=== PATIENT | male | born 2000 | race African-American/Black ===

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

== ENCOUNTER 2024-08-11 13:06 | Emergency (ER) | payer MEDICAID ==
[~2024-08-11] VITALS: Ht 180.3 cm; Wt 132.7 kg
[2024-08-11 13:41] VITALS: BP 134/63; PULSE 92; RESP 18; TEMP 98.4; O2SAT 97
[2024-08-11 15:22] LABS: ALANINE AMINOTRANSFERASE 41 U/L (12-78); ALBUMIN/GLOBULIN RATIO 0.9 (1.1-1.5); ALKALINE PHOSPHATASE 79 IU/L (46-116); ANION GAP 7 (8-16); ASPARTATE AMINO TRANSFERASE 29 U/L (10-37); BILIRUBIN,TOTAL 0.4 MG/DL (0.1-1.0); BLOOD UREA NITROGEN 14 MG/DL (7-18); BUN/CREATININE RATIO 16.7 (10.0-20.0); CHLORIDE 104 MMOL/L (99-107); CREATININE 0.84 MG/DL (0.60-1.10); GLUCOSE 82 MG/DL (70-104); POTASSIUM 4.2 MMOL/L (3.5-5.1); SODIUM 141 MMOL/L (135-145); TOTAL CARBON DIOXIDE 29.7 MMOL/L (24-32); TOTAL PROTEIN 8.4 G/DL (6.4-8.2); eCRCL 147 ML/MIN; eGFR > 90 ML/MIN
[2024-08-11 15:42] LABS: BASOPHILS % (AUTO) 0.5 % (0-1); EOSINOPHILS # (AUTO) 0.3 X10'3 (0-0.9); EOSINOPHILS % (AUTO) 2.8 % (0-6); HEMATOCRIT 46.4 % (42.0-52.0); HEMOGLOBIN 15.7 g/dl (14.0-17.9); LYMPHOCYTES # (AUTO) 1.8 X10'3 (1.1-4.8); LYMPHOCYTES % (AUTO) 18.5 % (21-51); MEAN CORPUSCULAR HEMOGLOBIN 29.7 PG (27.0-31.0); MEAN CORPUSCULAR HGB CONC 33.9 g/dL (33.0-36.5); MEAN CORPUSCULAR VOLUME 87.6 FL (78-98); MEAN PLATELET VOLUME 8.2 FL (7.4-10.4); MONOCYTES # (AUTO) 0.7 X10'3 (0-0.9); MONOCYTES % (AUTO) 7.6 % (2-12); NEUTROPHILS % (AUTO) 70.6 % (42-75); PLATELET COUNT 353 X10'3 (140-440); RED CELL DISTRIBUTION WIDTH 14.4 % (11.5-14.5); WHITE BLOOD COUNT 9.9 X10'3 (4.5-11.0)
== END 2024-08-11 17:33 | disposition home or self-care (01) ==
LOC: ER 13:07
DX: R55 Syncope and collapse (principal); R53.1 Weakness; F41.9 Anxiety disorder, unspecified; F32.A Depression, unspecified; F12.90 Cannabis use, unspecified, uncomplicated
CPT/HCPCS: 36415; 71045; 80053; 85025; 93005; 99285

== ENCOUNTER 2024-11-01 15:05 | Emergency (ER) | payer MEDICAID ==
[~2024-11-01] VITALS: Ht 180.3 cm; Wt 125.0 kg
[2024-11-01 15:58] LABS: BASOPHILS % (AUTO) 0.6 % (0-1); EOSINOPHILS # (AUTO) 0.3 X10'3 (0-0.9); EOSINOPHILS % (AUTO) 4.3 % (0-6); HEMATOCRIT 39.7 % (42.0-52.0); HEMOGLOBIN 13.5 g/dl (14.0-17.9); LYMPHOCYTES % (AUTO) 15.7 % (21-51); MEAN CORPUSCULAR HEMOGLOBIN 29.1 PG (27.0-31.0); MEAN CORPUSCULAR VOLUME 85.4 FL (78-98); MEAN PLATELET VOLUME 7.5 FL (7.4-10.4); MONOCYTES % (AUTO) 16.5 % (2-12); NEUTROPHILS % (AUTO) 62.9 % (42-75); PLATELET COUNT 297 X10'3 (140-440); RED BLOOD COUNT 4.64 X10'6 (4.70-6.10); RED CELL DISTRIBUTION WIDTH 14.1 % (11.5-14.5); WHITE BLOOD COUNT 6.3 X10'3 (4.5-11.0)
[2024-11-01 16:06] LABS: ALBUMIN 3.4 G/DL (3.4-5.0); ANION GAP 7 (8-16); BLOOD UREA NITROGEN 6 MG/DL (7-18); BUN/CREATININE RATIO 6.8 (10.0-20.0); CHLORIDE 105 MMOL/L (99-107); CREATININE 0.88 MG/DL (0.60-1.10); ETHANOL < 10 MG/DL (<10); GLUCOSE 86 MG/DL (70-104); POTASSIUM 3.3 MMOL/L (3.5-5.1); SODIUM 138 MMOL/L (135-145); TOTAL CARBON DIOXIDE 26.4 MMOL/L (24-32); eCRCL 140 ML/MIN; eGFR > 90 ML/MIN
[2024-11-01 16:34] LABS: PLATELET ESTIMATE NORMAL; TOTAL CELLS COUNTED 100
[2024-11-01] MEDS: normal saline 1000ml 1,000 ML IV ONE (16:36)
[2024-11-01 18:25] VITALS: O2SAT 98
[2024-11-01 19:08] VITALS: BP 108/63; PULSE 68; RESP 16
== END 2024-11-01 19:17 | disposition home or self-care (01) ==
LOC: ER 15:06
DX: T40.601A Poisoning by unspecified narcotics, accidental (unintentional), initial encounter (principal); F17.200 Nicotine dependence, unspecified, uncomplicated; R07.89 Other chest pain; Y92.89 Other specified places as the place of occurrence of the external cause
CPT/HCPCS: 36415; 80048; 80320; 85007; 85025; 93005; 96360; 96361; 99284; J7030

== ENCOUNTER 2024-11-14 13:41 | Emergency (ER) | payer MEDICAID | END 2024-11-14 14:31 | disposition left against medical advice (07) | LOC: ER 13:42 | DX: T65.91XA Toxic effect of unspecified substance, accidental (unintentional), initial encounter (principal); Z53.21 Procedure and treatment not carried out due to patient leaving prior to being seen by health care provider; Y92.89 Other specified places as the place of occurrence of the external cause ==

== ENCOUNTER 2024-11-14 15:04 | Emergency (ER) | payer MEDICAID ==
[~2024-11-14] VITALS: Ht 180.3 cm; Wt 122.7 kg
[2024-11-14] MEDS: LORazepam 1 MG tablet PO ONE (19:58)
[2024-11-14 20:26] LABS: BASOPHILS # (AUTO) 0.1 X10'3 (0-0.2); EOSINOPHILS # (AUTO) 0.1 X10'3 (0-0.9); EOSINOPHILS % (AUTO) 1.5 % (0-6); HEMATOCRIT 45.3 % (42.0-52.0); HEMOGLOBIN 15.3 g/dl (14.0-17.9); LYMPHOCYTES # (AUTO) 1.7 X10'3 (1.1-4.8); LYMPHOCYTES % (AUTO) 20.4 % (21-51); MEAN CORPUSCULAR HEMOGLOBIN 28.8 PG (27.0-31.0); MEAN CORPUSCULAR HGB CONC 33.7 g/dL (33.0-36.5); MEAN CORPUSCULAR VOLUME 85.4 FL (78-98); MEAN PLATELET VOLUME 7.7 FL (7.4-10.4); MONOCYTES # (AUTO) 0.6 X10'3 (0-0.9); MONOCYTES % (AUTO) 6.9 % (2-12); NEUTROPHILS # (AUTO) 5.9 X10'3 (1.8-7.7); NEUTROPHILS % (AUTO) 70.2 % (42-75); PLATELET COUNT 405 X10'3 (140-440); RED CELL DISTRIBUTION WIDTH 14.2 % (11.5-14.5); WHITE BLOOD COUNT 8.4 X10'3 (4.5-11.0)
[2024-11-14 20:44] LABS: ALANINE AMINOTRANSFERASE 32 U/L (12-78); ALBUMIN 3.9 G/DL (3.4-5.0); ALKALINE PHOSPHATASE 83 IU/L (46-116); ANION GAP 7 (8-16); ASPARTATE AMINO TRANSFERASE 15 U/L (10-37); BILIRUBIN,TOTAL 0.6 MG/DL (0.1-1.0); BLOOD UREA NITROGEN 9 MG/DL (7-18); BUN/CREATININE RATIO 11.1 (10.0-20.0); CALCIUM 9.4 MG/DL (8.5-10.1); CHLORIDE 108 MMOL/L (99-107); CREATININE 0.81 MG/DL (0.60-1.10); ETHANOL < 10 MG/DL (<10); GLUCOSE 82 MG/DL (70-104); POTASSIUM 3.3 MMOL/L (3.5-5.1); SALICYLATE 2.9 MG/DL (4.0-20.0); SODIUM 144 MMOL/L (135-145); TOTAL CARBON DIOXIDE 28.8 MMOL/L (24-32); eCRCL 152 ML/MIN; eGFR > 90 ML/MIN
[2024-11-14 20:50] LABS: ACETAMINOPHEN < 2.0 UG/ML (10-30)
[2024-11-14] MEDS: normal saline 1000ml 1,000 ML IV ONE (20:51)
[2024-11-14 23:20] VITALS: BP 113/56; PULSE 88; RESP 14; TEMP 98.5; O2SAT 96
== END 2024-11-14 23:27 | disposition home or self-care (01) ==
LOC: ER 15:04
DX: T43.221A Poisoning by selective serotonin reuptake inhibitors, accidental (unintentional), initial encounter (principal); F41.9 Anxiety disorder, unspecified; F32.A Depression, unspecified; I49.9 Cardiac arrhythmia, unspecified; F12.90 Cannabis use, unspecified, uncomplicated; Z72.89 Other problems related to lifestyle; Y92.89 Other specified places as the place of occurrence of the external cause
CPT/HCPCS: 36415; 80053; 80178; 80320; 80329; 82948; 85025; 93005; 96360; 99284; J7030

== ENCOUNTER 2024-11-28 17:46 | Emergency (ER) | payer MEDICAID ==
[~2024-11-28] VITALS: Ht 180.3 cm; Wt 111.0 kg
[2024-11-28 18:06] VITALS: BP 133/61; PULSE 110; RESP 16; TEMP 97.9; O2SAT 98
== END 2024-11-28 20:09 | disposition home or self-care (01) ==
LOC: ER 17:46
DX: Z02.9 Encounter for administrative examinations, unspecified (principal); F10.20 Alcohol dependence, uncomplicated; F41.9 Anxiety disorder, unspecified; F32.A Depression, unspecified; F12.90 Cannabis use, unspecified, uncomplicated; Z72.89 Other problems related to lifestyle
CPT/HCPCS: 99281

== ENCOUNTER 2024-12-01 14:16 | Emergency (ER) | payer MEDICAID ==
[~2024-12-01] VITALS: Ht 180.3 cm; Wt 117.0 kg
[2024-12-01 14:28] VITALS: BP 137/51; PULSE 113; RESP 18; TEMP 97.9; O2SAT 98
== END 2024-12-01 16:24 | disposition home or self-care (01) ==
LOC: ER 14:17
DX: Z00.8 Encounter for other general examination (principal)
CPT/HCPCS: 99281

== ENCOUNTER 2025-01-26 21:31 | Emergency (ER) | payer MEDICAID ==
[~2025-01-26] VITALS: Ht 180.3 cm; Wt 166.9 kg
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
--- NOTE | 2025-01-26 23:24 | RADIOLOGY REPORT ---
Clinical History TRAUMA WITH TRISMUS Comparison None Technique: mandible 2 views Without Contrast DAISHA GROVE, [id number] findings: Mandible is intact. Mandibular condyles are normal in appearance. Midline septum No acute sinus disease Impression: 1. No displaced mandibular fracture. This report was electronically signed by Jean Pierre Nunes MD on 01/26/2025 11:21:47 PM.
[2025-01-26 23:48] VITALS: BP 130/72; PULSE 82; RESP 18; TEMP 98.6; O2SAT 99
== END 2025-01-26 23:50 | disposition home or self-care (01) ==
LOC: ER 21:31
DX: S01.01XD Laceration without foreign body of scalp, subsequent encounter (principal); S61.511D Laceration without foreign body of right wrist, subsequent encounter; R68.84 Jaw pain; F41.9 Anxiety disorder, unspecified; F32.9 Major depressive disorder, single episode, unspecified; F12.90 Cannabis use, unspecified, uncomplicated; X58.XXXD Exposure to other specified factors, subsequent encounter
CPT/HCPCS: 70110; 99283

== ENCOUNTER 2025-02-13 18:10 | Emergency (ER) | payer MEDICAID ==
[~2025-02-13] VITALS: Ht 180.3 cm; Wt 113.6 kg
[2025-02-13] MEDS: methylPREDNISolone sod succ 125mg/2ml vial IV ONE (18:20)
--- NOTE | 2025-02-13 18:28 | ELECTROCARDIOGRAPH REPORT ---
[facility] Test Date: 2025-02-13 Test Time: 18:25:44 Pat Name: DAISHA GROVE Department: EMERGENCY ROOM Patient ID: [facility]-[id number] Room: Gender: M Media Production Manager: KIERA : 2000 Requested By: NATALY JIMENEZ Order Number: [id number] Reading MD: Dr. Nataly Jimenez Measurements Intervals [place] Rate: 89 P: 61 [place]: 129 QRS: 80 QRSD: 83 T: 33 QT: 323 QTc: 393 Interpretive Statements Sinus rhythm Electronically Signed On 02-13-2025 21:01:[address] Nataly Jimenez Please click the below link to view image of tracing.
--- NOTE | 2025-02-13 18:31 | Physician Documentation ---
History of Present Illness ~ Chief Complaint: Cough Stated Complaint: SOB Time Seen by MD: 18:19 OK to notify your PCP?: Yes Primary Medical Doctor: JANESSA BEDOLLA Source: patient Mode of Arrival: POV Exam Limitations: no limitations HPI 24-year-old male who is here due to cough and shortness of breath which started five days ago. Patient states that he got out of the [facility] five days ago when the symptoms started. He states he has not done any drugs in 12 days now. He states he does smoke cigarettes. Pre arrival treatment with his inhaler provides temporary relief. No fever, chills, body aches, history of asthma, sinus pain, sore throat, or edema. Medication Reconciliation Allergies: Coded Allergies: No Known Allergies (Unverified , 12/01/24) Past Medical History Past Medical History: *CARDIOVASCULAR*, Anxiety, Depression Past Surgical History: noncontributory Alcohol Use: Occasionally Drug Use: marijuana Review of Systems All Other Systems at this time: Reviewed and Negative Physical Exam Vital Signs: Temperature: 99.0, Source: Oral, Heart Rate: 95, Respiratory Rate: 16, BP: 119/56, Pulse Oximetry: 96, Weight: 113.600 Oxygen Flow Rate: 0 Physical Exam GENERAL: Alert, no acute distress. HEENT: NCAT, EOMI, PERRL, normal oropharynx, moist oral mucosa. NECK: Supple, trachea midline. No cervical lymphadenopathy. CARDIAC: Regular rate and rhythm, no murmurs, rubs, or gallops. Equal distal pulses. No lower extremity edema, cap refill less than 2 seconds. RESPIRATORY: Scattered rhonchi with decreased breath sounds throughout lung perry, no coughing observed on exam but increased respiratory rate GASTROINTESTINAL: Non distended, soft, nontender, No guarding or rebound. MUSCULOSKELETAL: Normal range of motion, nontender, no swelling. Normal gait. NEUROLOGICAL: Awake, alert, and oriented x 3. SKIN: Warm/dry, no pallor, no rash. PSYCH: Alert and appropriate. Affect congruent with mood. Speech is clear. Good eye contact. Progress Progress Note CHEST RADIOGRAPH Indication: CP Technique: Single frontal view of the chest was obtained Comparison: DI CHEST,SINGLE VIEW on DOS: 08/11/24, CHEST,SINGLE VIEW on DOS: 05/18/20 FINDINGS: Lines and Tubes: None Lungs: No focal consolidation. Pleura: No effusion. No pneumothorax. Cardiomediastinal contours: Unremarkable Bones: No acute osseous abnormality. IMPRESSION: 1. No acute cardiopulmonary disease. Results/Orders Reviewed/noted all lab results: Yes Results/Orders Orders - FAVIOLA HUNT Svn Treatment (02/13/25 18:20) Completed Orders - FAVIOLA HUNT Ipratropium/Albuterol Nebule (Ipratrop/A (02/13/25 18:20) Methylprednisolone Sod Succ (Solumedrol (02/13/25 18:20) Methylprednisolone Sod Succ (Solumedrol (02/13/25 19:05) Medications Received in ER Medications (Trade) Dose Ordered Sig/Marion Route PRN Reason Start Time Stop Time Status Last Admin Dose Admin (ipratrop/ albuterol 0.5-3(2.5) MG/3ml nebule) 3 ml ONCE ONCE NEB 02/13/25 18:20 02/13/25 18:22 DC 02/13/25 18:41 3 ML (SoluMEDROL 125mg inj) 125 mg ONCE ONCE IM 02/13/25 19:05 02/13/25 19:16 DC 02/13/25 19:23 125 MG Vital Signs 02/13/25 02/13/25 02/13/25 18:11 18:42 18:47 Temp 99.0 Pulse 95 81 86 Resp 16 22 18 B/P (MAP) 119/56 Pulse Ox 96 99 O2 Delivery Room Air* Room Air* O2 Flow Rate 0 0 FiO2 N/A N/A Re-Evaluation Re-Evaluation : Re-Evaluation: Improved Progress improved post nebulizer treatment Medical Decision Making Differential Dx:Considerations: Include: Allergic rhinitis, Influenza, Otitis media, Peritonsillar abscess, Pharyngitis-Diphtheria, Pharyngitis-Streptoccal, Pharyngitis-Viral, Pneumonia, Pnuemonitis, Sinusitis, URI, Other Differential Diagnosis I did not swab him for COVID or influenza as he is outside of the treatment window he also afebrile. Departure Time of Disposition: 18:31 Disposition: 01 HOME / SELF CARE / HOMELESS Impression: Primary Impression: Asthma exacerbation Qualified Codes: J45.901 - Unspecified asthma with (acute) exacerbation Condition: Stable Discharge Instructions: Asthma, Adult, [id number] Additional Instructions: We gave you Solu-Medrol here which will last later than 24 hours. Considering your workup was unremarkable I treated you for an asthma exacerbation I do not believe you need a prescription for steroids but if your symptoms return, return to ER for re-evaluation Referrals: NO PRIMARY CARE PROVIDER (PCP) Education Educated: Patient Educated regarding: diagnosis, treatment, need for follow up Signature Scribe Signature: x Attestation: FAVIOLA Chavez February 13, 2025 18:31
--- NOTE | 2025-02-13 18:37 | RADIOLOGY REPORT ---
CHEST RADIOGRAPH Indication: CP Technique: Single frontal view of the chest was obtained Comparison: DI CHEST,SINGLE VIEW on DOS: 08/11/24, CHEST,SINGLE VIEW on DOS: 05/18/20 FINDINGS: Lines and Tubes: None Lungs: No focal consolidation. Pleura: No effusion. No pneumothorax. Cardiomediastinal contours: Unremarkable Bones: No acute osseous abnormality. IMPRESSION: 1. No acute cardiopulmonary disease.
[2025-02-13] MEDS: ipratropium/albuterol 3ml nebule NEB ONE (18:41)
[2025-02-13 18:42] VITALS: PULSE 81; RESP 22
[2025-02-13 18:47] VITALS: PULSE 86; RESP 18; O2SAT 99
[2025-02-13] MEDS: methylPREDNISolone sod succ 125mg/2ml vial IM ONE (19:23)
[2025-02-13 19:49] VITALS: BP 114/68; PULSE 89; RESP 16; TEMP 99; O2SAT 98
== END 2025-02-13 19:50 | disposition home or self-care (01) ==
LOC: ER 18:10
DX: J45.901 Unspecified asthma with (acute) exacerbation (principal); F17.210 Nicotine dependence, cigarettes, uncomplicated; F41.9 Anxiety disorder, unspecified; F32.A Depression, unspecified; F12.90 Cannabis use, unspecified, uncomplicated; Z72.89 Other problems related to lifestyle
CPT/HCPCS: 71045; 93005; 94640; 96372; 99283; J2919

== ENCOUNTER 2025-05-07 21:32 | Emergency (ER) | payer MEDICAID ==
[~2025-05-07] VITALS: Ht 180.3 cm; Wt 118.0 kg
[~2025-05-07 21:32] MED LIST: ALBU8HFA INH
[2025-05-07 21:42] VITALS: TEMP 98.6
--- NOTE | 2025-05-07 21:49 | Physician Documentation ---
History of Present Illness ~ Chief Complaint: Overdose Stated Complaint: OD Time Seen by MD: 21:39 Primary Medical Doctor: JANESSA GONZALES Patient presents to the emergency room for evaluation after overdose. Patient endorses smoking fentanyl this evening. He does state that he has overdosed previously. States that in his relaxing in his house smoking fentanyl and suddenly the next thing he remembers was he is waking up with a bunch of people around him. EMS reports that they arrived upon the scene he is receiving active CPR for a proximally 1 minute prior to Narcan administration. Medication Reconciliation Allergies: Coded Allergies: No Known Allergies (Unverified , 04/07/25) Scheduled PRN albuterol inhaler (Pro-Air Inhaler), 2 PUFFS INH Q4HPRN PRN for wheezing Past Medical History Past Medical History: *CARDIOVASCULAR*, Anxiety, Depression Past Surgical History: noncontributory Alcohol Use: Occasionally Drug Use: marijuana Review of Systems ROS All review of systems negative except as per HPI Physical Exam Vital Signs: Temperature: 98.6, Source: Oral, Heart Rate: 98, Respiratory Rate: 16, BP: 102/60, Pulse Oximetry: 99, Weight: 118.000 Physical Exam General: Patient is awake, alert, oriented x4 in no acute distress Head: Normocephalic and atraumatic. Eyes: Conjunctival normal. EOMI. PERRL. ENT: Mucous membranes moist. Neck: Supple, trachea is midline. Chest: Clear to auscultation bilaterally without rales, rhonchi, or wheezes. There is no accessory muscle use or retractions. Cardiac: RRR without murmurs, gallops, or rubs. Progress Results/Orders Results/Orders Vital Signs 05/07/25 05/07/25 05/07/25 21:42 21:46 23:00 Temp 98.6 Pulse 98 82 Resp 16 16 16 B/P (MAP) 102/60 97/55 (69) Pulse Ox 99 98 EKG/XRAY/CT/US/VASC/MRI EKG : Additional Comment EKG interpreted by myself shows time of 10/13/2033, rate 93, sinus rhythm, normal axis, no ST changes Medical Decision Making Findings Patient presents to the emergency room after admitted opioid overdose. He was monitored in the emergency room with no need for Narcan administration and is easily arousable and he had not believe he is in danger of overdose at this time. Patient has been advised to stop doing drugs. Departure Disposition: HOME / SELF CARE / HOMELESS Impression: Primary Impression: Poisoning by opiate or related narcotic Condition: Fair Discharge Instructions: Opioid Overdose Referrals: NO PRIMARY CARE PROVIDER (PCP) Prescriptions Naloxone HCl (Narcan) 4 Mg/Actuation [place] 1 SPRAYS BOTHNARES ONCE for 1 Day, #1 EA 0 Refills Prov: GERHARD SALDANA MD 05/07/25 Education Educated: Patient Educated regarding: need for follow up Signature Scribe Signature: No scribe Attestation: The note accurately reflects work and decisions made by me.Gerhard Saldana MD 05/07/25 23:33 GERHARD SALDANA MD May 07, 2025 21:48
[2025-05-07] MEDS ORDERED: NALO4SPR BOTHNARES (23:33)
[2025-05-07 23:55] VITALS: BP 101/61; PULSE 98; RESP 22; O2SAT 99
--- NOTE | 2025-05-08 10:21 | ELECTROCARDIOGRAPH REPORT ---
[facility] Test Date: 2025-05-07 Test Time: 21:34:59 Pat Name: DAISHA GROVE Department: EMERGENCY ROOM Room: Gender: M Assistant Superintendent: LARISA : 2000 Requested By: DEPARTMENT EMERGENCY Order Number: [id number] Reading MD: Dr. Kapil Mcgill Measurements Intervals [place] Rate: 93 P: 32 [place]: 131 QRS: 73 QRSD: 93 T: 25 QT: 338 QTc: 421 Interpretive Statements Sinus rhythm Electronically Signed On 05-08-2025 17:26:[address] Kapil Mcgill Please click the below link to view image of tracing.
== END 2025-05-07 23:57 | disposition home or self-care (01) ==
LOC: ER 21:32
DX: T40.411A Poisoning by fentanyl or fentanyl analogs, accidental (unintentional), initial encounter (principal); R40.4 Transient alteration of awareness; F12.90 Cannabis use, unspecified, uncomplicated; F41.9 Anxiety disorder, unspecified; F32.A Depression, unspecified; Z72.89 Other problems related to lifestyle; Y92.89 Other specified places as the place of occurrence of the external cause
CPT/HCPCS: 93005; 99283

== ENCOUNTER 2025-05-10 19:46 | Emergency (ER) | payer MEDICAID ==
[~2025-05-10] VITALS: Ht 180.3 cm; Wt 113.0 kg
[~2025-05-10 19:46] MED LIST changes: +NALO4SPR BOTHNARES
--- NOTE | 2025-05-10 20:39 | Physician Documentation ---
History of Present Illness ~ Chief Complaint: Overdose Stated Complaint: CHEST WALL PAIN Time Seen by MD: 19:52 Primary Medical Doctor: JANESSA BEDOLLA Mode of Arrival: EMS, Stretcher HPI 24 year old male with overdose of opioid, BIB ems after received bystander CPR and narcan by EMS. On arrival he is awake/alert, complaining of R-sternal chest pain, and denying other medical problems. Medication Reconciliation Allergies: Coded Allergies: No Known Allergies (Unverified , 04/07/25) Scheduled Naloxone HCl (Narcan), 1 SPRAYS BOTHNARES ONCE Scheduled PRN albuterol inhaler (Pro-Air Inhaler), 2 PUFFS INH Q4HPRN PRN for wheezing Past Medical History Past Medical History: *CARDIOVASCULAR*, Anxiety, Depression Past Surgical History: noncontributory Alcohol Use: Occasionally Drug Use: marijuana Review of Systems All Other Systems at this time: Reviewed and Negative Physical Exam Vital Signs: RN Vital Signs have been reviewed: Yes, Temperature: 95.0, Source: Oral, Heart Rate: 90, Respiratory Rate: 13, BP: 124/59, Pulse Oximetry: 100, Weight: 113.000 Physical Exam HEENT: PERRL, moist oral mucosa, EOMI Pulmonary: No respiratory distress CTAB Cardiac: RRR, no murmur, rub or gallop; chest wall +TTP R inferior sternum MSK: no deformity Skin: w/d/i, no rash Neuro: alert, nonfocal Psych: normal affect Progress Results/Orders Results/Orders Orders - JOSHUA ZUÑIGA MD Chest,Single View (05/10/25 20:08) Completed Orders - JOSHUA ZUÑIGA MD Chest,Single View (05/10/25 20:08) Vital Signs 05/10/25 05/10/25 19:49 20:04 Temp 95.0 Pulse 90 Resp 16 13 B/P (MAP) 124/59 Pulse Ox 100 Medical Decision Making Findings 24 year old male with chest pain likely 2/2 CPR. CXr interpeted by me uli trated no PTX or PNA, no rib fracture, no acute. EKG interpreted by me demonstrated NSR at 99/minute, no STEMI criteria, no dysrhythmia. NSAID, improved, dispo with return precautions, no further deterioration or altered mental status and no need for further narcan at this time. Additional Comment Ddx = rib fracture, PTX, contusion, opioid overdoses Departure Disposition: 01 HOME / SELF CARE / HOMELESS Impression: Primary Impression: Opioid overdose Additional Impression: Chest wall pain Condition: Stable Discharge Instructions: Opioid Overdose Referrals: NO PRIMARY CARE PROVIDER (PCP) Education Educated: Patient Educated regarding: diagnosis, treatment, prognosis, need for follow up Signature Scribe Signature: . Attestation: . JOSHUA ZUÑIGA MD May 10, 2025 20:39
[2025-05-10] MEDS: ketorolac trometh 30MG/ML vial 30 MG/ML VIAL IV ONE (20:54)
--- NOTE | 2025-05-10 20:56 | RADIOLOGY REPORT ---
CHEST RADIOGRAPH REASON FOR EXAM: chest pain COMPARISON: DI CHEST,SINGLE VIEW on DOS: 04/07/25, DI CHEST,SINGLE VIEW on DOS: 02/13/25, DI CHEST,SING LE VIEW on DOS: 08/11/24, CHEST,SINGLE VIEW on DOS: 05/18/20 TECHNIQUE: One view of the chest is provided FINDINGS: The cardiomediastinal silhouette is within normal limits for technique. There are low inspi ratory volumes causing crowding and exaggeration of the pulmonary markings. There is no focal airspac e disease. There is no significant pleural effusion. No acute bony abnormality is identified. IMPRESSION: Low inspiratory volumes causing crowding and exaggeration of the pulmonary markings. No focal airspac e disease.
[2025-05-10 21:35] VITALS: BP 110/47; PULSE 77; RESP 14; TEMP 95; O2SAT 97
--- NOTE | 2025-05-11 06:11 | ELECTROCARDIOGRAPH REPORT ---
[facility] Test Date: 2025-05-10 Test Time: 19:49:27 Pat Name: DAISHA GROVE Department: EMERGENCY ROOM Room: Gender: M Accounts Payable Coordinator: : 2000 Requested By: DEPARTMENT EMERGENCY Order Number: [id number] Reading MD: Dr. Kapil Mcgill Measurements Intervals [place] Rate: 99 P: 46 [place]: 145 QRS: 83 QRSD: 100 T: 12 QT: 328 QTc: 421 Interpretive Statements Sinus rhythm Electronically Signed On 05-11-2025 6:16:[address] Kapil Mcgill Please click the below link to view image of tracing.
== END 2025-05-10 21:40 | disposition home or self-care (01) ==
LOC: ER 19:47
DX: T40.2X1A Poisoning by other opioids, accidental (unintentional), initial encounter (principal); R07.89 Other chest pain; F41.9 Anxiety disorder, unspecified; F32.A Depression, unspecified; F12.90 Cannabis use, unspecified, uncomplicated; Z72.89 Other problems related to lifestyle; Z79.899 Other long term (current) drug therapy; Y92.89 Other specified places as the place of occurrence of the external cause
CPT/HCPCS: 71045; 93005; 96374; 99283; J1885

== ENCOUNTER 2025-05-22 17:19 | Emergency (ER) | payer MEDICAID ==
[~2025-05-22] VITALS: Ht 180.3 cm; Wt 117.0 kg
[2025-05-22 17:23] VITALS: TEMP 97.1
--- NOTE | 2025-05-22 18:20 | Physician Documentation ---
History of Present Illness ~ Chief Complaint: Overdose Stated Complaint: OVERDOSE Time Seen by MD: 18:18 Primary Medical Doctor: JANESSA GONZALES Patient presents to the emergency room for evaluation after by standard administered Narcan two patient from overdose. This is the patient's 3rd visit this week. History of prior overdoses before that. He denies SI/HI Medication Reconciliation Allergies: Coded Allergies: No Known Allergies (Unverified , 05/22/25) Scheduled Naloxone HCl (Narcan), 1 SPRAYS BOTHNARES ONCE Scheduled PRN albuterol inhaler (Pro-Air Inhaler), 2 PUFFS INH Q4HPRN PRN for wheezing Past Medical History Past Medical History: *CARDIOVASCULAR*, Anxiety, Depression Past Surgical History: noncontributory Alcohol Use: Occasionally Drug Use: marijuana Review of Systems ROS All review of systems negative except as per HPI Physical Exam Vital Signs: Temperature: 97.1, Source: Temporal, Heart Rate: 91, Respiratory Rate: 16, BP: 130/82, Pulse Oximetry: 98, Weight: 117.000 Oxygen Flow Rate: 0 Physical Exam General: Patient is sleeping, easily arousable in no acute distress. Head: Normocephalic and atraumatic. Eyes: Conjunctival normal. EOMI. PERRL. ENT: Mucous membranes moist. Neck: Supple, trachea is midline. Chest: Clear to auscultation bilaterally without rales, rhonchi, or wheezes. There is no accessory muscle use or retractions. Cardiac: RRR without murmurs, gallops, or rubs. Progress Results/Orders Results/Orders Vital Signs 05/22/25 05/22/25 17:23 20:39 Temp 97.1 Pulse 91 71 Resp 16 15 B/P (MAP) 130/82 121/74 (90) Pulse Ox 98 97 O2 Flow Rate 0 Medical Decision Making Findings Patient presented to the emergency room with opioid overdose. He denies any SI/HI. Monitored in the emergency room for a time deemed safe for discharge as no Narcan re administration was necessary. Had long conversation with the patient that he is going to end up killing himself. He acknowledges this in the need to stop. Poor prognosis Departure Disposition: 01 HOME / SELF CARE / HOMELESS Impression: Primary Impression: Poisoning by opiate or related narcotic Condition: Fair Discharge Instructions: Accidental Drug Poisoning, Adult Additional Instructions: You were going to end up killing herself. Stop doing opioid/overdosing. Recommend rehab facility. Referrals: NO PRIMARY CARE PROVIDER (PCP) Prescriptions Naloxone HCl (Narcan) 4 Mg/Actuation [place] 1 SPRAYS BOTHNARES ONCE for 1 Day, #1 EA 0 Refills Prov: GERHARD SALDANA MD 05/22/25 Education Educated: Patient Educated regarding: diagnosis, need for follow up Signature Scribe Signature: No scribe Attestation: The note accurately reflects work and decisions made by me.Gerhard Saldana MD 05/22/25 21:07 GERHARD SALDANA MD May 22, 2025 18:20
[2025-05-22 21:56] VITALS: BP 116/65; PULSE 78; RESP 16; O2SAT 98
== END 2025-05-22 21:58 | disposition home or self-care (01) ==
LOC: ER 17:20
DX: T50.7X1A Poisoning by analeptics and opioid receptor antagonists, accidental (unintentional), initial encounter (principal); F41.9 Anxiety disorder, unspecified; F32.A Depression, unspecified; F12.90 Cannabis use, unspecified, uncomplicated; Z79.899 Other long term (current) drug therapy; Z72.89 Other problems related to lifestyle; Y92.89 Other specified places as the place of occurrence of the external cause
CPT/HCPCS: 99281; 99283

== ENCOUNTER 2025-06-08 03:33 | Emergency (ER) | payer MEDICAID ==
[~2025-06-08] VITALS: Ht 188 cm; Wt 121.0 kg
[2025-06-08 03:51] VITALS: TEMP 97.7
[2025-06-08] MEDS ORDERED: NALO4SPR BOTHNARES (04:02)
--- NOTE | 2025-06-08 04:03 | Physician Documentation ---
History of Present Illness ~ Chief Complaint: See Chief Complaint Stated Complaint: OD Time Seen by MD: 03:47 Primary Medical Doctor: JANESSA BEDOLLA Source: patient Mode of Arrival: EMS Exam Limitations: no limitations HPI Mr. Hudson is a 24 y/o male with PMHx significant for WARREN who presents to the ED via EMS after accidentally overdosing on Fentanyl. He states "I got a bad batch." He self-administered 12 mg IN Naloxone and then called 911. He denies SOB or difficulty breathing. He is scheduled to be seen at [facility] today for his Suboxone. He denies co-ingestion. Denies recent EtOH use. No recent fall or head trauma. Medication Reconciliation Allergies: Coded Allergies: No Known Allergies (Unverified , 06/08/25) Scheduled Naloxone HCl (Narcan), 1 SPRAYS BOTHNARES ONCE Naloxone HCl (Narcan), 1 SPRAYS BOTHNARES ONCE Naloxone HCl (Narcan), 1 SPRAYS BOTHNARES ONCE Scheduled PRN albuterol inhaler (Pro-Air Inhaler), 2 PUFFS INH Q4HPRN PRN for wheezing Past Medical History Past Medical History: *CARDIOVASCULAR*, Anxiety, Depression Past Surgical History: noncontributory Alcohol Use: Occasionally Drug Use: marijuana Review of Systems All Other Systems at this time: Reviewed and Negative Physical Exam Vital Signs: RN Vital Signs have been reviewed: Yes, Temperature: 97.7, Source: Oral, Heart Rate: 78, Respiratory Rate: 12, BP: 128/64, Pulse Oximetry: 98, Weight: 121.000 Oxygen Flow Rate: 0 General Appearance: alert, WD/WN, no apparent distress Pupils/EOM/Fundus: PERRLA EENT: normal ENT inspection Head: normal inspection Neck: normal inspection Respiratory: lungs clear Chest: no accessory muscle use Cardiovascular: normal peripheral pulses Gastrointestinal: normal palpation Extremities: non-tender Neurologic: oriented x4 Cerebellar function exam: normal Motor / Sensory: no motor deficit Appearance/Memory/Insight: appropriate appearance Behavior/Eye contact/Speech: cooperative Thought/Hallucinations: normal thought pattern Affect: appropriate Skin: normal color Lymphatic: normal inspection Progress Results/Orders Results/Orders Vital Signs 06/08/25 06/08/25 06/08/25 03:51 04:02 04:02 Temp 97.7 Pulse 78 78 Resp 12 14 B/P (MAP) 128/64 122/65 (84) Pulse Ox 98 99 O2 Flow Rate 0 0 Medical Decision Making Differential Dx:Considerations: Include: Alcohol abuse, Anxiety, Bipolar disorder, Conversion disorder, Delirium, Depression, Drug Overdose-Accidental, Encephalopathy, Hallucinations, Liver failure, Panic disorder, Respiratory failure, Substance abuse Additional Comment While here in the ED, he remained hemodynamically normal with ABC's intact and in NAD. He is afebrile and nontoxic. Neuro exam nonfocal. Monitored here in the ED for several hours without the need to redose Naloxone. Does not appear to be in precipitated withdrawal. He is safe for d/c home with instructions to keep his appointment with K[facility] Reg[facility] for Suboxone. Given follow-up and return instructions. He voiced understanding and agreement with d/c instructions. Departure Disposition: HOME / SELF CARE / HOMELESS Impression: Primary Impression: Opioid overdose Additional Impression: Substance use disorder Condition: Improved Referrals: NO PRIMARY CARE PROVIDER (PCP) Prescriptions Naloxone HCl (Narcan) 4 Mg/Actuation [place] 1 SPRAYS BOTHNARES ONCE for 1 Day, #1 EA 0 Refills Prov: TATAINA GHOTRA MD 06/08/25 Education Educated: Patient Educated regarding: diagnosis, prognosis Signature Scribe Signature: N/A Attestation: N/A TATIANA GHOTRA MD Jun 08, 2025 04:03
[2025-06-08 05:40] VITALS: BP 120/74; PULSE 77; RESP 14; O2SAT 99
== END 2025-06-08 05:46 | disposition home or self-care (01) ==
LOC: ER 03:34
DX: T50.7X1A Poisoning by analeptics and opioid receptor antagonists, accidental (unintentional), initial encounter (principal); F19.20 Other psychoactive substance dependence, uncomplicated; F12.90 Cannabis use, unspecified, uncomplicated; F41.9 Anxiety disorder, unspecified; F32.A Depression, unspecified; Z79.899 Other long term (current) drug therapy; Z72.89 Other problems related to lifestyle; Y93.89 Activity, other specified
CPT/HCPCS: 99283

== ENCOUNTER 2025-06-23 16:19 | Emergency (ER) | payer MEDICAID ==
[~2025-06-23] VITALS: Ht 180.3 cm; Wt 117.2 kg
[2025-06-23 16:59] VITALS: BP 135/99; PULSE 80; RESP 16; O2SAT 99
--- NOTE | 2025-06-23 18:25 | Physician Documentation ---
History of Present Illness ~ Chief Complaint: Medical Clearance Stated Complaint: MED CLEARANCE Time Seen by MD: 17:12 Primary Medical Doctor: JANESSA GONZALES Patient is seen today with complaints of needing detox clearance and med clearance to enter detox program at [facility] for methamphetamine and fentanyl. Patient states his last use was yesterday. Patient has no other concern or complaint at this time denies any chest pain or shortness of breath or abdominal pain or nausea, vomiting, diarrhea. Patient has no other concern or complaint at this time Tetanus within 5 years?: Yes Medication Reconciliation Allergies: Coded Allergies: No Known Allergies (Unverified , 06/23/25) Scheduled Naloxone HCl (Narcan), 1 SPRAYS BOTHNARES ONCE Naloxone HCl (Narcan), 1 SPRAYS BOTHNARES ONCE Naloxone HCl (Narcan), 1 SPRAYS BOTHNARES ONCE Scheduled PRN albuterol inhaler (Pro-Air Inhaler), 2 PUFFS INH Q4HPRN PRN for wheezing Past Medical History Past Medical History: *CARDIOVASCULAR*, Anxiety, Depression Past Surgical History: noncontributory Alcohol Use: Occasionally Drug Use: marijuana Review of Systems Constitutional: Denies: chills, fever, weakness Eyes: Denies: pain, blurred vision ENT: Denies: ear pain, nose pain, throat pain, mouth pain Respiratory: Denies: cough, shortness of breath Cardiovascular: Denies: chest pain, palpitations Gastrointestinal: Denies: abdominal pain, nausea, vomiting Genitourinary: Denies: burning, dysuria Male Genitalia: Denies: penile discharge, testicular pain Neurological: Denies: headache, dizziness Musculoskeletal: Denies: pain, swelling Integumentary: Denies: rash, lesions Allergic/Immunologic: Denies: hives, itching Hematologic/Lymphatic: Denies: no symptoms reported Psychiatric: Denies: depression, anxiety Physical Exam Vital Signs: Temperature: 98.3, Source: Oral, Heart Rate: 80, Respiratory Rate: 16, BP: 135/99, Pulse Oximetry: 99, Weight: 117.200 Oxygen Flow Rate: 0 Physical Exam General: Awake and Alert, no acute distress. HEENT: Conjunctiva pink, Sclera clear, Mucus Membranes moist. Neck: Supple without masses and tenderness. Resp: Unlabored. Lungs clear to auscultation bilaterally. Heart: Regular Rate and rhythm, normal S1 and S2 without murmur, rub or gallop. Abdomen: Soft and non tender no organomegaly Extremities: No cyanosis,clubbing or edema. Skin: Warm and Dry. Progress Results/Orders Results/Orders Vital Signs 06/23/25 16:59 Temp 98.3 Pulse 80 Resp 16 B/P (MAP) 135/99 Pulse Ox 99 O2 Flow Rate 0 Medical Decision Making Findings Patient is seen today with complaints of needing detox clearance and med clearance to enter detox program at [facility] for methamphetamine and fentanyl. Patient states his last use was yesterday. Patient has no other concern or complaint at this time denies any chest pain or shortness of breath or abdominal pain or nausea, vomiting, diarrhea. Patient has no other concern or complaint at this time Patient is medically cleared for entrance into [facility]. Patient will return to ED with any worsening, concerning or changing symptoms. Departure Disposition: HOME / SELF CARE / HOMELESS Impression: Primary Impression: Encounter for medical screening examination Condition: Stable Discharge Instructions: Medical Screening Exam Additional Instructions: Patient is medically cleared for entrance into [facility]. Patient will return to ED with any worsening, concerning or changing symptoms. Referrals: NO PRIMARY CARE PROVIDER (PCP) Signature Scribe Signature: No scribe Attestation: No scribe VIANEY BECKHAM PAC Jun 23, 2025 18:25
[2025-06-23 18:30] VITALS: TEMP 98.3
== END 2025-06-23 18:32 | disposition home or self-care (01) ==
LOC: ER 16:20
DX: Z00.00 Encounter for general adult medical examination without abnormal findings (principal); F12.90 Cannabis use, unspecified, uncomplicated; Z79.899 Other long term (current) drug therapy; Z72.89 Other problems related to lifestyle
CPT/HCPCS: 99282

== ENCOUNTER 2025-09-01 10:07 | Emergency (ER) | payer MEDICAID ==
[~2025-09-01] VITALS: Ht 177.8 cm; Wt 113.6 kg
[2025-09-01 10:08] VITALS: TEMP 97.5
--- NOTE | 2025-09-01 10:34 | Physician Documentation ---
History of Present Illness ~ Chief Complaint: Medical Clearance Stated Complaint: MED CLEARANCE Time Seen by MD: 10:23 OK to notify your PCP?: Yes Primary Medical Doctor: JANESSA BEDOLLA Source: patient, police Mode of Arrival: Police HPI Patient is seen today brought in by law enforcement. Patient states he was using fentanyl just prior to arrival. Patient also admits to pain in his right shoulder stating he broke his scapula around Thanksgiving. Patient has no other concern or complaint at this time and states his high has pass and denies any chest pain or shortness of breath or abdominal pain or nausea, vomiting, diarrhea. Tetanus within 5 years?: No Medication Reconciliation Allergies: Coded Allergies: No Known Allergies (Unverified , 06/23/25) Scheduled Naloxone HCl (Narcan), 1 SPRAYS BOTHNARES ONCE Naloxone HCl (Narcan), 1 SPRAYS BOTHNARES ONCE Naloxone HCl (Narcan), 1 SPRAYS BOTHNARES ONCE Scheduled PRN albuterol inhaler (Pro-Air Inhaler), 2 PUFFS INH Q4HPRN PRN for wheezing Past Medical History Past Medical History: *CARDIOVASCULAR*, Anxiety, Depression Past Surgical History: noncontributory Alcohol Use: Occasionally Drug Use: marijuana Review of Systems Constitutional: Denies: chills, fever, weakness Eyes: Denies: pain, blurred vision ENT: Denies: ear pain, nose pain, throat pain, mouth pain Respiratory: Denies: cough, shortness of breath Cardiovascular: Denies: chest pain, palpitations Gastrointestinal: Denies: abdominal pain, nausea, vomiting Genitourinary: Denies: burning, dysuria Male Genitalia: Denies: penile discharge, testicular pain Neurological: Denies: headache, dizziness Musculoskeletal: Denies: pain, swelling Integumentary: Denies: rash, lesions Allergic/Immunologic: Denies: hives, itching Hematologic/Lymphatic: Denies: no symptoms reported Psychiatric: Denies: depression, anxiety Physical Exam Vital Signs: Temperature: 97.5, Source: Oral, Heart Rate: 64, Respiratory Rate: 18, BP: 113/60, Pulse Oximetry: 98, Weight: 113.640 Oxygen Flow Rate: 0 Physical Exam General: Awake and Alert, no acute distress. HEENT: Conjunctiva pink, Sclera clear, Mucus Membranes moist. Neck: Supple without masses and tenderness. Resp: Unlabored. Lungs clear to auscultation bilaterally. Heart: Regular Rate and rhythm, normal S1 and S2 without murmur, rub or gallop. Musculoskeletal: Patient on exam does have decreased range of motion of the right shoulder in all planes of motion. Patient is neurovascularly intact distally. Motor function intact distally. Extremities: No cyanosis,clubbing or edema. Skin: Warm and Dry. Progress Results/Orders Results/Orders Orders - VIANEY BECKHAM Shoulder, Complete (Min 2 Vws) (09/01/25 10:32) Completed Orders - VIANEY BECKHAM Shoulder, Complete (Min 2 Vws) (09/01/25 10:32) Vital Signs 09/01/25 09/01/25 10:08 10:13 Temp 97.5 Pulse 66 64 Resp 18 18 B/P (MAP) 113/60 113/60 (77) Pulse Ox 99 98 O2 Flow Rate 0 0 Laboratory Tests Test 09/01/25 10:10 Glucometer 88 EKG/XRAY/CT/US/VASC/MRI Bone/Soft Tissue X-Ray (Ext.) : Additional Comment X-ray of right shoulder interpreted by myself today shows possible occult fracture of scapular spine. No other sign of fracture or dislocation. DIAGNOSTIC RADIOLOGY Patient: DAISHA GROVE Medical Record: [id number] JOSEPH BEREA : 2000, Age: 25 Sex: Male Location: ER Patient Status: [facility] ER Service Date/Time: 09/01/251031 Ordering Physician: VIANEY BECKHAM Exam: SHOULDER, COMPLETE (MIN 2 VWS) EXAM: DI SHOULDER, COMPLETE (MIN 2 VWS) HISTORY:: right shoulder pain COMPARISON: None TECHNIQUE:: 2 views of the right shoulder were obtained. FINDINGS: There is a lucency through the scapular spine suspicious for fracture. No dislocation. IMPRESSION: 1. Lucency through the scapular spine suspicious for fracture. Electronically Signed by:SHARON GUTIERREZ MD Date & Time: 09/01/25 1058 Dictated by: SHARON GUTIERREZ MD Dictation date and time: 09/01/25 1049 Primary Care Provider: NO PRIMARY CARE PROVIDER cc: VIANEY BECKHAM ~ Medical Decision Making Additional information obtaine: N/A Findings Patient is seen today brought in by law enforcement. Patient states he was using fentanyl just prior to arrival. Patient also admits to pain in his right shoulder stating he broke his scapula around Thanksgiving. Patient has no other concern or complaint at this time and states his high has pass and denies any chest pain or shortness of breath or abdominal pain or nausea, vomiting, diarrhea. Patient did have x-ray of right shoulder that showed possible fracture of the scapular spine on the right side suspicious for fracture. Patient will be placed in his sling for four weeks and will be re-evaluated at that time. Patient was given a sling to wear for four weeks after which he will be re- evaluated. Differential Dx:Considerations: Include: Intoxication-Alcohol, Intoxication- Other drug, Fracture(s), Contusion Departure Disposition: HOME / SELF CARE / HOMELESS Impression: Primary Impression: Substance use disorder Additional Impressions: Encounter for medical screening examination Scapula fracture Qualified Codes: S42.101A - Fracture of unspecified part of scapula, right shoulder, initial encounter for closed fracture Condition: Stable Discharge Instructions: Scapular Fracture Additional Instructions: Patient did have x-ray of right shoulder that showed possible fracture of the scapular spine on the right side suspicious for fracture. Patient will be placed in his sling for four weeks and will be re-evaluated at that time. Patient was given a sling to wear for four weeks after which he will be re- evaluated. Referrals: NO PRIMARY CARE PROVIDER (PCP) Signature Scribe Signature: No scribe Attestation: No scribe VIANEY BECKHAM Sep 01, 2025 10:34
--- NOTE | 2025-09-01 11:01 | RADIOLOGY REPORT ---
EXAM: DI SHOULDER, COMPLETE (MIN 2 VWS) HISTORY:: right shoulder pain COMPARISON: None TECHNIQUE:: 2 views of the right shoulder were obtained. FINDINGS: There is a lucency through the scapular spine suspicious for fracture. No dislocation. IMPRESSION: 1. Lucency through the scapular spine suspicious for fracture.
[2025-09-01 11:38] VITALS: BP 120/71; PULSE 68; RESP 16; O2SAT 98
== END 2025-09-01 11:39 | disposition home or self-care (01) ==
LOC: ER 10:08
DX: S42.101A Fracture of unspecified part of scapula, right shoulder, initial encounter for closed fracture (principal); F11.90 Opioid use, unspecified, uncomplicated; Z79.899 Other long term (current) drug therapy; X58.XXXA Exposure to other specified factors, initial encounter; Y93.89 Activity, other specified; Y92.89 Other specified places as the place of occurrence of the external cause; Y99.8 Other external cause status
CPT/HCPCS: 73030; 82948; 99283; A4565